=== PATIENT | female | born 1995 | race Caucasian/White ===

== ENCOUNTER 2017-02-22 16:33 | Emergency (ER) | payer OTHER ==
[~2017-02-22] VITALS: Ht 167.6 cm; Wt 65.0 kg
[2017-02-22 16:35] VITALS: BP 147/84; PULSE 78; RESP 16; TEMP 98.2; O2SAT 99
[2017-02-22 17:37] LABS: AUTOMATED NEUTROPHIL # 14.3 TH/MM3 (1.8-7.7); BASOPHIL # 0.1 TH/MM3 (0-0.2); BASOPHIL % 0.4 % (0.0-2.0); EOSINOPHIL # 0.1 TH/MM3 (0-0.4); EOSINOPHIL % 0.6 % (0.0-4.0); HEMATOCRIT 37.4 % (35.0-46.0); HEMO FLAGS DIFF FINAL; LYMPH % 17.4 % (9.0-44.0); LYMPHOCYTE # 3.3 TH/MM3 (1.0-4.8); MEAN CELL VOLUME 86.1 FL (80.0-100.0); MEAN CORPUSCULAR HEMOGLOBIN 29.1 PG (27.0-34.0); MEAN CORPUSCULAR HGB CONC 33.8 % (32.0-36.0); MONO % 6.4 % (0.0-8.0); NEUT % 75.2 % (16.0-70.0); PLATELET COUNT 257 TH/MM3 (150-450); RED BLOOD COUNT 4.34 MIL/MM3 (4.00-5.30); RED CELL DISTRIBUTION WIDTH 12.5 % (11.6-17.2)
--- NOTE | 2017-02-22 17:39 | PD ---
HPI Chief Complaint: Related Problem Time Seen by Provider: 17:39 Travel History International Travel<30 days: No Contact w/Intl Traveler<30days: No Traveled to known affect area: No History of Present Illness HPI 21 YO female presents the ED for evaluation of one day history of lower abdominal cramping and light vaginal spotting. She denies fevers, chills, nausea, vomiting, dysuria, vaginal discharge, back pain. Patient endorses a positive urine test at home. She is unsure of the date of her last menstrual period. She thinks it may have an early December. PFSH Past Medical History ?: LMP: mid-December Social History Tobacco Use: Yes (currently trying to quit) Allergies-Medications (Allergen,Severity, Reaction): Coded Allergies: No Known Allergies (Unverified , 02/22/17) Reported Meds & Prescriptions Reported Meds & Active Scripts Active No Active Prescriptions or Reported Medications Review of Systems Except as stated in HPI: all other systems reviewed are Neg Physical Exam Narrative GENERAL: Well-nourished, well-developed patient. SKIN: Focused skin assessment warm/dry. HEAD: Normocephalic. EYES: No scleral icterus. No injection or drainage. NECK: Supple, trachea midline. No JVD or lymphadenopathy. CARDIOVASCULAR: Regular rate and rhythm without murmurs, gallops, or rubs. RESPIRATORY: Breath sounds equal bilaterally. No accessory muscle use. GASTROINTESTINAL: Abdomen soft, non-tender, nondistended. Active bowel sounds. GENITOURINARY: Normal external genitalia without lesions or erythema. Vaginal vault without blood. Small amount of thick white drainage. Cervix thick, firm , closed. Cervical os was closed without drainage. No cervical motion tenderness. Uterus nontender and nonenlarged. Bilateral adnexa nontender without masses. MUSCULOSKELETAL: No cyanosis, or edema. BACK: Nontender without obvious deformity. No CVA tenderness. Data Data Last Documented VS Vital Signs Date Time Temp Pulse Resp B/P Pulse Ox O2 Delivery O2 Flow Rate FiO2 02/22/17 17:53 97 Room Air 02/22/17 16:35 98.2 78 16 147/84 Orders Complete Blood Count With Diff (02/22/17 17:01) Beta Hcg (Quant/Titer) (02/22/17 17:01) Iv Access Insert/Monitor (02/22/17 17:01) Oxygen Administration (6/6/17 17:01) Oximetry (02/22/17 17:01) Ed Urine Pregnancytest Poc (02/22/17 17:01) Gc And Chlamydia Pcr (02/22/17 17:50) Wet Prep Profile (02/22/17 17:50) Urinalysis - C+S If Indicated (02/22/17 17:50) Ed Poc Ultrasound (02/22/17 ) Us Pelvis (Ques Pr/Ect)W Trans (02/22/17 ) Labs Laboratory Tests Test 02/22/17 02/22/17 02/22/17 17:16 18:05 18:20 White Blood Count 19.0 TH/MM3 Red Blood Count 4.34 MIL/MM3 Hemoglobin 12.6 GM/DL Hematocrit 37.4 % Mean Corpuscular Volume 86.1 FL Mean Corpuscular Hemoglobin 29.1 PG Mean Corpuscular Hemoglobin 33.8 % Concent Red Cell Distribution Width 12.5 % Platelet Count 257 TH/MM3 Mean Platelet Volume 9.2 FL Neutrophils (%) (Auto) 75.2 % Lymphocytes (%) (Auto) 17.4 % Monocytes (%) (Auto) 6.4 % Eosinophils (%) (Auto) 0.6 % Basophils (%) (Auto) 0.4 % Neutrophils # (Auto) 14.3 TH/MM3 Lymphocytes # (Auto) 3.3 TH/MM3 Monocytes # (Auto) 1.2 TH/MM3 Eosinophils # (Auto) 0.1 TH/MM3 Basophils # (Auto) 0.1 TH/MM3 CBC Comment DIFF FINAL Differential Comment Human Chorionic Gonadotropin, 25072 MIU/ML Quant Urine Color YELLOW Urine Turbidity CLEAR Urine pH 5.5 Urine Specific [place] 1.021 Urine Protein TRACE mg/dL Urine Glucose (UA) NEG mg/dL Urine Ketones NEG mg/dL Urine Occult Blood NEG Urine Nitrite NEG Urine Bilirubin NEG Urine Urobilinogen LESS THAN 2.0 MG/DL Urine Leukocyte Esterase NEG Urine WBC 1 /hpf Urine Squamous Epithelial 1 /hpf Cells Urine Mucus FEW /lpf Microscopic Urinalysis Comment CULT NOT INDICATED Clue Cells (Wet Prep) NONE SEEN Vaginal Trichomonas (Wet Prep) NONE SEEN Vaginal Yeast (Wet Prep) NONE SEEN Chlamydia trachomatis DNA NOT DETECTED (PCR) Neisseria gonorrhoeae DNA NOT DETECTED (PCR) MDM Medical Decision Making Medical Screen Exam Complete: Yes Emergency Medical Condition: Yes Differential Diagnosis Intrauterine versus ectopic versus threatened miscarriage versus UTI versus STI versus other Narrative Course 21 YO female presents the ED for evaluation of one day history of lower abdominal cramping and light vaginal spotting. She denies fevers, chills, nausea, vomiting, dysuria, vaginal discharge, back pain. Patient endorses a positive urine test at home. She is unsure of the date of her last menstrual period. She thinks it may have an early December. Vitals reviewed. Physical exam reveals a thin white female in no acute distress. Abdomen soft, nontender. No CVA tenderness. Pelvic exam reveals a small amount of white discharge in the vaginal vault but is otherwise unremarkable. CBC shows a leukocytosis of 19.0. HCG 08172. No culture indicated of the UA. Wet prep negative. GC chlamydia and negative. Transvaginal ultrasound reveals intrauterine approximately 5 weeks, 2 days. 2 early for measuring crown-rump length or heart sounds. There is a possible subchorionic hemorrhage and probable right corpus luteal cyst noted. I discussed the results of the workup with the patient. Patient states that they recently moved to [place] and she is attempting to quit smoking, leukocytosis possibly stress related. Explained to the patient that she has a intrauterine that is too early to measure heart sounds and hCG is currently consistent with ultrasound dating. She understands that this is a threatened and she is to return to the ED in 48 hours for redraw of the hCG. Will follow the leukocytosis at that time as well. This patient is stable and discharged home. Diagnosis Primary Impression: Intrauterine Additional Impression: Threatened in early Referrals: Osteology Teacher Patient Instructions: First Trimester (ED), General Instructions, Threatened Miscarriage (ED) Additional Instructions: Rest, hydrate. Return to normal, gentle activity as tolerated. Return to the ED in 2-3 days for recheck of the hormone. Follow-up with the store hand as a land. Return to the ED for worsening of symptoms or any urgent or emergent medical condition. Scripts No Active Prescriptions or Reported Meds Disposition: 01 DISCHARGE HOME Condition: Stable Lisa Flower Feb 22, 2017 17:39
[2017-02-22 17:53] VITALS: O2SAT 97
[2017-02-22 18:12] LABS: BETA HCG QUANT 10860 MIU/ML (0-5)
[2017-02-22 18:34] LABS: BLOOD, URINE NEG (NEG); GLUCOSE,URINE NEG (NEG); KETONE, URINE NEG (NEG); MUCUS URINE FEW /lpf (OCC); NITRITE,URINE NEG (NEG); PH, URINE 5.5 (5.0-8.5); SQUAMOUS EPITHELIAL CELL URINE 1 /hpf (0-5); URINE COLOR YELLOW (YELLW/STRAW)
[2017-02-22 18:35] LABS: COMMENT (UR) CULT NOT INDICATED; CULTURE IF INDICATED CULT NOT INDICATED
--- NOTE | 2017-02-22 20:07 | RADRPT ---
EXAM DATE/TIME: 02/22/2017 19:20 [place] COMPARISON: No previous studies available for comparison. INDICATIONS : Pelvic cramping and spotting. LAB(S): Beta-hC,860 MEDICAL HISTORY : . Tobacco use. SURGICAL HISTORY : None. ENCOUNTER: Initial ACUITY: 1 day PAIN SCORE: 4/10 LOCATION: Bilateral pelvis MEASUREMENTS: UTERUS: 8.3 x 6.3 x 4.3 cm ENDOMETRIAL STRIPE: >20 mm RIGHT OVARY: 2.5 x 2.5 x 1.8 cm LEFT OVARY: Nonvisualized FREE FLUID: Yes posterior cul de sac CROWN RUMP LENGTH: 0.2 cm = OOR WKS DAYS FHR: Nonvisualized BPM FINDINGS: UTERUS: Single intrauterine estimated 5 weeks 2 days. Yolk sac present. pole too small to juanita sure. No heart tones. Small hypoechoic area adjacent to the endometrium measuring 13 x 5 x 7 mm . RIGHT OVARY: Mildly complex cystic lesion measures 15 x 13 x 15 mm. LEFT OVARY: Left ovary not visualized. MISCELLANEOUS: Trace free fluid. CONCLUSION: 1. Intrauterine estimated at 5 weeks and 2 days. [place]-rump length too small to measure and no heart tones at this time. Close interval followup. 2. Possible subchorionic hemorrhage measuring 13 x 5 x 7 mm. 3. Probable corpus luteal cyst on the right. Robson Marte MD on February 22, 2017 at 20:00 Board Certified Radiologist. This report was verified electronically.
[2017-02-22 22:28] LABS: CHLAMYDIA PCR NOT DETECTED (NOT DETECT); NEISSERIA PCR NOT DETECTED (NOT DETECT)
== END 2017-02-22 20:40 | disposition home or self-care (01) ==
LOC: NEPD 16:33
DX: O26.891 Other specified pregnancy related conditions, first trimester (principal); O20.0 Threatened abortion; R10.9 Unspecified abdominal pain; Z3A.01 Less than 8 weeks gestation of pregnancy
CPT/HCPCS: 76700; 76817; 81001; 84702; 84703; 85025; 87210; 87491; 87591; 99285

== ENCOUNTER 2017-04-21 17:33 | Emergency (ER) | payer MEDICAID, OTHER ==
[~2017-04-21] VITALS: Ht 167.6 cm; Wt 75.0 kg
[2017-04-21 17:36] VITALS: BP 140/72; PULSE 118; RESP 24; TEMP 98.2; O2SAT 99
[2017-04-21 20:57] VITALS: BP 146/81; PULSE 119; RESP 20; O2SAT 98
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
== END 2017-04-21 21:52 ==
LOC: NEPD 17:33
DX: F19.90 Other psychoactive substance use, unspecified, uncomplicated (principal); O99.321 Drug use complicating pregnancy, first trimester; F41.9 Anxiety disorder, unspecified; O99.341 Other mental disorders complicating pregnancy, first trimester; R00.0 Tachycardia, unspecified; R06.02 Shortness of breath; R11.0 Nausea; O99.331 Smoking (tobacco) complicating pregnancy, first trimester; Z3A.13 13 weeks gestation of pregnancy
CPT/HCPCS: 99281

== ENCOUNTER 2017-10-17 10:13 | Inpatient (IN) | payer MEDICAID ==
[2017-10-17] VITALS (11 sets, daily range): BP systolic 112–141; BP diastolic 81–92; PULSE 66–126; RESP 18–20; TEMP 98.1–98.8
[2017-10-17] MEDS ORDERED: LACTATED RINGER'S 1000 ML INJ 1,000 ML IV PRN (10:24)
[2017-10-17] MEDS ORDERED: LACTATED RINGER'S 1000 ML INJ 1,000 ML IV SCH (10:24)
--- NOTE | 2017-10-17 10:28 | HHI.HP ---
HPI Chief Complaint "The baby is coming" Date Seen: Oct 17, 2017 Time Seen: 10:00 Travel History International Travel<30 Days: No Contact w/Intl Traveler<30Days: No History of Present Illness HPI Ms. Vallecillo is a 21 yo white female with no significant PMH presenting to the OB floor in labor. She states that 2 days ago she started feeling uncomfortable and then proceeded to have contractions. Last night the contractions were every 7 minutes and then progressed to closer together this morning. She lost her mucous plug last night as well. No loss of fluids and no vaginal bleeding. Weeks Gestation: 39 Para: 0 : 1 Last Menstrual Period: Jan 16, 2017 Miscarriage: 0 : 0 History Past Medical History Medical History: Denies Significant Hx Past Surgical History Surgical History: No Previous Surgery Family History Family History: Negative Social History Alcohol Use: No Tobacco Use: Yes (a few cigarettes a day) Substance Abuse: Yes (hydrocodone (old rx) for back pain, a few times over the course of the , last dose was a week ago, denies IV drug use (chart review shows IV dilaudid use in April 2017)) Allergies-Medications (Allergen,Severity, Reaction): Coded Allergies: No Known Allergies (Unverified , 04/21/17) Home Meds No Active Prescriptions or Reported Meds Review of Systems General / Constitutional: No: Fever, Chills Physical Exam Narrative GENERAL: Well-nourished, well-developed patient. SKIN: Warm and dry. HEAD: Normocephalic and atraumatic. EYES: No scleral icterus. No injection or drainage. ENT: No nasal drainage noted. Mucous membranes pink. Airway patent. NECK: Supple, trachea midline. No JVD. CARDIOVASCULAR: Regular rate and rhythm without murmurs, gallops, or rubs. RESPIRATORY: Breath sounds equal bilaterally. No accessory muscle use. ABDOMEN/GI: Abdomen soft, non-tender, bowel sounds present, no rebound, no guarding Gravid to 39 weeks size GENITOURINARY: External Genitalia: intact and normal in appearance Dilatation: 10 Effacement: 100 Station: +1 Presentation: vertex Membranes: ruptured on exam Uterine Contractions: unable to assess due to precipitous delivery FHT's: not obtained prior to delivery EXTREMITIES: No cyanosis or edema. BACK: Nontender without obvious deformity. NEUROLOGICAL: Awake and alert. Motor and sensory grossly within normal limits. Five out of 5 muscle strength in all muscle groups. Normal speech. Caprini VTE Risk Assessment Caprini VTE Risk Assessment: No/Low Risk (score <= 1) Caprini Risk Assessment Model Point Value = 1 Point Value = 2 Point Value = 3 Point Value = 5 Age 41-60 Minor surgery BMI > 25 kg/m2 Swollen legs Varicose veins or History of unexplained or recurrent spontaneous Oral contraceptives or hormone replacement Sepsis (< 1 month) Serious lung disease, including pneumonia (< 1 month) Abnormal pulmonary function Acute myocardial infarction Congestive heart failure (< 1 month) History of inflammatory bowel disease Medical patient at bed rest Age 61-74 Arthroscopic surgery Major open surgery (> 45 min) Laparoscopic surgery (> 45 min) Malignancy Confined to bed (> 72 hours) Immobilizing plaster cast Central venous access Age >= 75 History of VTE Family history of VTE Factor V Leiden Prothrombin [id number] Lupus anticoagulant Anticardiolipin antibodies Elevated serum homocysteine Heparin-induced thrombocytopenia Other congenital or acquired thrombophilia Stroke (< 1 month) Elective arthroplasty Hip, pelvis, or leg fracture Acute spinal cord injury (< 1 month) Prophylaxis Regimen Total Risk Factor Score Risk Level Prophylaxis Regimen 0-1 Low Early ambulation 2 Moderate Order ONE of the following: *Sequential Compression Device (SCD) *Heparin 5000 units SQ BID 3-4 Higher Order ONE of the following medications: *Heparin 5000 units SQ TID *Enoxaparin/Lovenox 40 mg SQ daily (WT < 150 kg, CrCl > 30 mL/min) *Enoxaparin/Lovenox 30 mg SQ daily (WT < 150 kg, CrCl > 10-29 mL/min) *Enoxaparin/Lovenox 30 mg SQ BID (WT < 150 kg, CrCl > 30 mL/min) AND/OR *Sequential Compression Device (SCD) 5 or more Highest Order ONE of the following medications: *Heparin 5000 units SQ TID (Preferred with Epidurals) *Enoxaparin/Lovenox 40 mg SQ daily (WT < 150 kg, CrCl > 30 mL/min) *Enoxaparin/Lovenox 30 mg SQ daily (WT < 150 kg, CrCl > 10-29 mL/min) *Enoxaparin/Lovenox 30 mg SQ BID (WT < 150 kg, CrCl > 30 mL/min) AND *Sequential Compression Device (SCD) Data Data Vital Signs Reviewed: Yes Orders Orders Admit To Inpatient (10/17/17 ) Code Status (10/17/17 10:24) Vital Signs (Adult) .Per protocol (10/17/17 10:24) Heart (10/17/17 10:24) Amnioinfusion (10/17/17 10:24) Urinary Catheter Management .ONCE (10/17/17 10:24) Lactated Ringer's 1000 Ml Inj (Lr 1000 M (10/17/17 10:24) Lactated Ringer's 1000 Ml Inj (Lr 1000 M (10/17/17 10:24) Sodium Chlorid 0.9% 500 Ml Inj (Ns 500 M (10/17/17 10:30) Sodium Chlor 0.9% 1000 Ml Inj (Ns 1000 M (10/17/17 10:44) Lidocaine 1% Inj (50 Ml) (Xylocaine 1% I (10/17/17 10:30) Citric Acid-Sodium Citrate Liq (Bicitra (10/17/17 10:30) Ondansetron Inj (Zofran Inj) (10/17/17 10:30) Fentanyl Inj (Fentanyl Inj) (10/17/17 10:30) Fentanyl Inj (Fentanyl Inj) (10/17/17 10:30) Complete Blood Count With Diff (10/17/17 10:24) Hold Clot (10/17/17 10:24) Abo/Rh Blood Type (10/17/17 10:24) Urinalysis - C+S If Indicated (10/17/17 10:24) Drug Screen, Random Urine (10/17/17 10:24) Resp Oxygen Non Rebreathe Mask (10/17/17 ) ^ Epidural / Intrathecal Infus (10/17/17 10:24) Oxytocin 30 Units-500ml Premix (Pitocin (10/17/17 10:30) Lidocaine 1% Inj (50 Ml) (Xylocaine 1% I (10/17/17 10:30) Light Mineral Oil (Muri-Lube Oil) (10/17/17 10:30) Inpatient Certification (10/17/17 ) Specimen To Be Collected PRN (10/17/17 10:24) Specimen To Be Collected PRN (10/17/17 10:24) Group B Strep: Positive Assessment/Plan Problem List: (1) Intrauterine ICD Codes: Z33.1 - state, incidental Status: Acute Assessment and Plan 21yo at 39 weeks presenting to the ED in active labor. Patient was checked and found to be complete. Taken to the delivery room and delivered. Upon further chart further review pt found to be GBS positive. Was recently discharged from Dr. Olivares's practice. -Admitted to L&D * Successful delivery -Will continue to follow post- Mishel Whitlock MD R1 Oct 17, 2017 10:28
[2017-10-17] MEDS ORDERED: SODIUM CHLORID 0.9% 500 ML INJ 500 ML IV PRN (10:30)
[2017-10-17] MEDS ORDERED: LIDOCAINE HCL 1% 50 ML VIAL INFIL PRN (10:30)
[2017-10-17] MEDS ORDERED: MINERAL OIL 10 ML VIAL TOPICAL PRN (10:30)
[2017-10-17] MEDS ORDERED: CITRIC ACID-SODIUM CITRATE LIQ 30 ML UDC PO SCH (10:30)
[2017-10-17] MEDS ORDERED: ONDANSETRON HCL 4 MG/2 ML VIAL IV PUSH PRN (10:30)
[2017-10-17] MEDS ORDERED: OXYTOCIN 30 UNITS-500ML PREMIX 500 ML IV ONE (10:30)
[2017-10-17] MEDS ORDERED: LIDOCAINE HCL 1% 50 ML VIAL I-DERMAL PRN (10:30)
[2017-10-17] MEDS ORDERED: SODIUM CHLOR 0.9% 1000 ML INJ 1,000 ML IV PRN (10:44)
[2017-10-17] MEDS ORDERED: SODIUM CHLORIDE 0.9% FLUSH 10 ML FLUSH IV FLUSH PRN (10:45)
[2017-10-17] MEDS ORDERED: oxyCODONE/ACETAMINOPHEN 5 MG/325 MG TAB PO PRN (10:45)
[2017-10-17] MEDS ORDERED: WITCH HAZEL 50%/GLYCERIN 12.5% 40 PAD JAR TOPICAL PRN (10:45)
[2017-10-17] MEDS ORDERED: DOCUSATE SODIUM 50 MG/SENNA 8.6 MG TAB PO PRN (10:45)
[2017-10-17] MEDS ORDERED: ACETAMINOPHEN 325 MG TAB PO PRN (10:45)
[2017-10-17] MEDS ORDERED: BENZOCAINE 20% TOPICAL SPRAY 60 ML CAN TOPICAL PRN (10:45)
[2017-10-17] MEDS ORDERED: ONDANSETRON ODT 4 MG TAB PO PRN (10:45)
[2017-10-17] MEDS ORDERED: ALUMINUM/MAGNESIUM/SIMETH 30 ML CUP PO PRN (10:45)
[2017-10-17] MEDS ORDERED: OXYTOCIN 30 UNITS-500ML PREMIX 500 ML IV SCH (11:00)
--- NOTE | 2017-10-17 11:14 | PD.OB.DELI ---
Weeks gestation: 39 Gest age assessed date: Oct 17, 2017 Gest age assessed time: 10:03 Pt started active labor?: Yes Active labor start date: Oct 17, 2017 Active labor start time: 09:55 Medical induction of labor?: No Artificial rupture of membrane: No Anesthesia: None Episiotomy: None Vaginal Delivery: Normal Presentation: Occiput anterior Nuchal Cord: None Delayed cord clamping (45 sec): Yes : Female Delivery date: Oct 17, 2017 Delivery time: 10:03 One Minute : 9 Five Minute : 9 Weight: 2590 Placenta: Spontaneous delivery, Intact, 3 vessel cord Laceration: No lacerations Estimated blood loss: <250ml Mishel Whitlock MD R1 Oct 17, 2017 11:14
[2017-10-17] MEDS: IBUPROFEN 800 MG TAB PO PRN ×2 (11:19→21:32)
[2017-10-17 13:48] LABS: BACTERIA, URINE OCC /hpf; BILIRUBIN, URINE NEG (NEG); BLOOD, URINE MOD (NEG); GLUCOSE,URINE NEG (NEG); KETONE, URINE NEG (NEG); NITRITE,URINE NEG (NEG); PH, URINE 6.5 (5.0-8.5); URINE COLOR RED (YELLW/STRAW); URINE LEUKOCYTE ESTERASE NEG (NEG)
[2017-10-17] MEDS ORDERED: DIPHTH/TETANUS/ACEL PERTUSSIS (BOOSTER) 0.5 ML VIAL/PFS IM ONE (16:00)
[2017-10-17] MEDS ORDERED: MEASLES, MUMPS, RUBELLA VACCINE 0.5 ML VIAL SQ ONE (16:00)
[2017-10-17 16:49] LABS: AUTOMATED NEUTROPHIL # 9.6 TH/MM3 (1.8-7.7); BASOPHIL # 0.1 TH/MM3 (0-0.2); BASOPHIL % 0.4 % (0.0-2.0); EOSINOPHIL % 0.1 % (0.0-4.0); HEMATOCRIT 37.4 % (35.0-46.0); HEMOGLOBIN 12.5 GM/DL (11.6-15.3); LYMPH % 14.7 % (9.0-44.0); LYMPHOCYTE # 1.8 TH/MM3 (1.0-4.8); MEAN CELL VOLUME 83.6 FL (80.0-100.0); MEAN CORPUSCULAR HGB CONC 33.5 % (32.0-36.0); MEAN PLATELET VOLUME 10.8 FL (7.0-11.0); MONO % 6.1 % (0.0-8.0); MONOCYTE # 0.7 TH/MM3 (0-0.9); NEUT % 78.7 % (16.0-70.0); PLATELET COUNT 187 TH/MM3 (150-450); RED BLOOD COUNT 4.48 MIL/MM3 (4.00-5.30); RED CELL DISTRIBUTION WIDTH 13.8 % (11.6-17.2); WHITE BLOOD COUNT 12.2 TH/MM3 (4.0-11.0)
[2017-10-17] MEDS ORDERED: NICOTINE 14 MG/24 HR PATCH TOPICAL SCH (21:00)
[2017-10-17] MEDS ORDERED: REMOVE OLD PATCH T-DERMAL SCH (21:00)
[2017-10-17] MEDS ORDERED: SODIUM CHLORIDE 0.9% FLUSH 10 ML FLUSH IV FLUSH SCH (21:00)
[2017-10-17] MEDS: ZOLPIDEM TARTRATE 5 MG TAB PO PRN (21:33)
[2017-10-18 08:00] VITALS: BP 115/76; PULSE 70; RESP 16; TEMP 98
--- NOTE | 2017-10-18 08:57 | HHI.OB ---
Subjective Post Day: 1 Remarks day # 1. AFVSS overnight. Pain well-controlled. Decreased lochia. Denies dysuria. No breast tenderness. She is feeding the baby via bottle. Appetite good. No nausea or vomiting. has flatus. no bowel movement yet. Ambulating well. Denies calf pain, shortness of breath, or cough. Otherwise, she is doing well this morning and has no other complaints. Objective Vitals/I&O Vital Signs Date Time Temp Pulse Resp B/P (MAP) Pulse Ox O2 Delivery O2 Flow Rate FiO2 10/18/17 08:00 98.0 70 16 115/76 (89) 10/17/17 20:00 98.1 66 18 127/86 (100) 10/17/17 11:25 20 10/17/17 11:15 72 130/92 (105) 10/17/17 11:08 20 10/17/17 11:07 74 141/89 (106) 10/17/17 11:05 20 10/17/17 10:50 79 18 122/85 (97) 10/17/17 10:35 98.8 10/17/17 10:33 18 10/17/17 10:29 79 127/85 (99) 10/17/17 10:20 126 112/81 (91) Objective Remarks GENERAL: Well-nourished, well-developed patient. CARDIOVASCULAR: Regular rate and rhythm without murmurs, gallops, or rubs. RESPIRATORY: Breath sounds equal bilaterally. No accessory muscle use. ABDOMEN/GI: Abdomen soft, non-tender. Fundus: Firm, non-tender at umbilicus. GENITOURINARY: Light to moderate bleeding. EXTREMITIES: No cyanosis or edema, non-tender, without signs of DVT. Medications and IVs Current Medications Medications (Trade) Dose Ordered Sig/Jahaira Route Start Time Stop Time Status Last Admin Lactated Ringer's 1,000 ml @ 125 mls/hr Q8H IV 10/17/17 10:24 Lactated Ringer's 1,000 ml @ 3,000 mls/hr Q20M PRN IV 10/17/17 10:24 Sodium Chloride 500 ml @ 1,000 mls/hr ONCE PRN IV 10/17/17 10:30 10/18/17 10:29 Sodium Chloride 1,000 ml @ 100 mls/hr Q10H PRN IV 10/17/17 10:44 (Bicitra Liq) 30 ml [place] PO 10/17/17 10:30 10/21/17 10:29 (Zofran Inj) 4 mg Q6H PRN IV PUSH 10/17/17 10:30 (Muri-Lube Oil) 10 ml UNSCH PRN TOPICAL 10/17/17 10:30 (NS Flush) 2 ml BID IV FLUSH 10/17/17 21:00 (NS Flush) 2 ml UNSCH PRN IV FLUSH 10/17/17 10:45 (Tylenol) 650 mg Q4H PRN PO 10/17/17 10:45 (Motrin) 800 mg Q8H PRN PO 10/17/17 10:45 10/17/17 21:32 (Percocet 5-325 Mg) 1 tab Q4H PRN PO 10/17/17 10:45 10/17/17 21:33 (Percocet 5-325 Mg) 2 tab Q4H PRN PO 10/17/17 10:45 (Americaine 20% Top Spr) 1 spray Q4H PRN TOPICAL 10/17/17 10:45 10/17/17 21:32 (Tucks Pads) 1 applic QID PRN TOPICAL 10/17/17 10:45 10/17/17 21:29 (Smita-Colace) 2 tab Q12H PRN PO 10/17/17 10:45 (Ambien) 5 mg HS PRN PO 10/17/17 10:45 10/17/17 21:33 (Mag-Al Plus Susp Liq) 15 ml Q8H PRN PO 10/17/17 10:45 (Zofran Odt) 4 mg Q6H PRN PO 10/17/17 10:45 (Flu (Quadrivalent) Vaccine Inj) 0.5 ml ONCE ONCE IM 10/18/17 09:00 10/18/17 09:01 (Habitrol 14 Mg Patch.24 Hr) 1 patch DAILY@2100 TOPICAL 10/17/17 21:00 Miscellaneous Information 1 DAILY@2100 T-DERMAL 10/17/17 21:00 Assessment/Plan Problem List: (1) Intrauterine ICD Codes: Z33.1 - state, incidental Status: Acute Assessment and Plan 21 y/o who is PPD# 1 s/p . -Continue routine care. -Percocet and Motrin PRN pain. -Encouraged OOB. Advised pelvic rest for 6 wks. -Will need a f/u appt. within 6 wks. -Re: ctrl, she would like to research first. We discussed depo and long acting BC like IUD or Nexplanon. -D/c in 1-2 more days. wdw OB attending Mishel Whitlock MD R1 Oct 18, 2017 08:57
[2017-10-18] MEDS ORDERED: INFLUENZA VIRUS VACCINE (QUADRIVALENT) 0.5 ML SYR IM ONE (09:00)
[2017-10-18] MEDS: IBUPROFEN 800 MG TAB PO PRN (13:47)
[2017-10-18] MEDS: oxyCODONE/ACETAMINOPHEN 5 MG/325 MG TAB PO PRN (13:54)
[2017-10-18 20:00] VITALS: BP 128/80; PULSE 66; RESP 18; TEMP 98.4; O2SAT 99
[2017-10-18] MEDS: ZOLPIDEM TARTRATE 5 MG TAB PO PRN (21:14)
[2017-10-19] MEDS: IBUPROFEN 800 MG TAB PO PRN (01:38)
[2017-10-19] MEDS: oxyCODONE/ACETAMINOPHEN 5 MG/325 MG TAB PO PRN (01:39)
[2017-10-19 08:00] VITALS: BP 111/67; PULSE 60; RESP 14; TEMP 98.4
[2017-10-19] MEDS ORDERED: IBUP1TAB7 PO (08:15)
[2017-10-19] MEDS ORDERED: PERI PO (08:15)
--- NOTE | 2017-10-19 08:33 | HHI.OB ---
Subjective Post Day: 2 Remarks day # 2. AFVSS overnight. Pain minimal and well controlled. Decreased lochia. Denies dysuria. No breast tenderness. She is feeding the baby via bottle. Appetite good. No nausea or vomiting. + flatus. + bowel movement. Ambulating well. Denies calf pain, shortness of breath, or cough. Otherwise, she is doing well this morning and has no other complaints. Objective Vitals/I&O Vital Signs Date Time Temp Pulse Resp B/P (MAP) Pulse Ox O2 Delivery O2 Flow Rate FiO2 10/19/17 08:00 98.4 60 14 111/67 (82) 10/18/17 20:00 66 128/80 (96) 10/18/17 20:00 98.4 18 99 Objective Remarks GENERAL: Well-nourished, well-developed patient. CARDIOVASCULAR: Regular rate and rhythm without murmurs, gallops, or rubs. RESPIRATORY: Breath sounds equal bilaterally. No accessory muscle use. ABDOMEN/GI: Abdomen soft, non-tender. Fundus: Firm, non-tender at umbilicus. GENITOURINARY: Light to moderate bleeding. EXTREMITIES: No cyanosis or edema, non-tender, without signs of DVT. Medications and IVs Current Medications Medications (Trade) Dose Ordered Sig/Jahaira Route Start Time Stop Time Status Last Admin Lactated Ringer's 1,000 ml @ 125 mls/hr Q8H IV 10/17/17 10:24 Lactated Ringer's 1,000 ml @ 3,000 mls/hr Q20M PRN IV 10/17/17 10:24 Sodium Chloride 1,000 ml @ 100 mls/hr Q10H PRN IV 10/17/17 10:44 (Bicitra Liq) 30 ml [employer] PO 10/17/17 10:30 10/21/17 10:29 (Zofran Inj) 4 mg Q6H PRN IV PUSH 10/17/17 10:30 (Muri-Lube Oil) 10 ml UNSCH PRN TOPICAL 10/17/17 10:30 (NS Flush) 2 ml BID IV FLUSH 10/17/17 21:00 (NS Flush) 2 ml UNSCH PRN IV FLUSH 10/17/17 10:45 (Tylenol) 650 mg Q4H PRN PO 10/17/17 10:45 (Motrin) 800 mg Q8H PRN PO 10/17/17 10:45 10/19/17 01:38 (Percocet 5-325 Mg) 1 tab Q4H PRN PO 10/17/17 10:45 10/17/17 21:33 (Percocet 5-325 Mg) 2 tab Q4H PRN PO 10/17/17 10:45 10/19/17 01:39 (Americaine 20% Top Spr) 1 spray Q4H PRN TOPICAL 10/17/17 10:45 10/17/17 21:32 (Tucks Pads) 1 applic QID PRN TOPICAL 10/17/17 10:45 10/17/17 21:29 (Smita-Colace) 2 tab Q12H PRN PO 10/17/17 10:45 10/18/17 13:54 (Ambien) 5 mg HS PRN PO 10/17/17 10:45 10/18/17 21:14 (Mag-Al Plus Susp Liq) 15 ml Q8H PRN PO 10/17/17 10:45 (Zofran Odt) 4 mg Q6H PRN PO 10/17/17 10:45 (Habitrol 14 Mg Patch.24 Hr) 1 patch DAILY@2099 TOPICAL 10/17/17 21:00 10/18/17 13:53 Miscellaneous Information 1 DAILY@2099 T-DERMAL 10/17/17 21:00 Assessment/Plan Problem List: (1) Intrauterine ICD Codes: Z33.1 - state, incidental Status: Acute Assessment and Plan 21 y/o who is PPD# 2 s/p . -Continue routine care, to be discharged today -Percocet and Motrin PRN pain. -Encouraged OOB. Advised pelvic rest for 6 wks. -Will need a f/u appt. within 6 wks. -Re: ctrl, would like depo shot before discharge. -D/c in 1-2 more days. [facility] attending Mishel Whitlock MD R1 Oct 19, 2017 08:33
[2017-10-19] MEDS ORDERED: medroxyPROGESTERone ACETATE SUSP 150 MG/ML SYRINGE IM ONE (08:45)
--- NOTE | 2017-10-19 09:25 | HHI.DCPOC ---
Discharge Care Plan Diagnosis: (1) care following vaginal delivery Report Symptoms to Your Doctor -Temperature above 100.5 degrees -Redness, of incision or excessive or foul smelling drainage -Unusual pain or calf pain -Increased vaginal bleeding -Painful or difficulty urinating -Feelings of extreme sadness or anxiety after 2 weeks Goals to Promote Your Health * To prevent worsening of your condition and complications * To maintain your health at the optimal level Directions to Meet Your Goals Take your medications as prescribed Follow your dietary instruction Follow activity as directed Ensure plenty of rest for recovery Drink fluids for hydration Keep your appointments as scheduled Take your immunizations and boosters as scheduled If your symptoms worsen call your PCP, if no PCP go to Urgent Care Center or Emergency Room Smoking is Dangerous to Your Health. Avoid second hand smoke Call the 24-hour crisis hotline for domestic abuse at Chino Erickson MD Oct 19, 2017 09:25
== END 2017-10-19 11:15 | disposition home or self-care (01) | DRG 775 ==
LOC: H2EA 10:13 → H1EA 11:43
PROVIDERS: ADMIT Obstetrics & Gynecology Maternal & Fetal Medicine; ATTEND Obstetrics & Gynecology Maternal & Fetal Medicine
PROC: 10E0XZZ Delivery of Products of Conception, External Approach (ICD-10-PCS; principal; 2017-10-17)
DX: O99.824 Streptococcus B carrier state complicating childbirth (principal); F17.210 Nicotine dependence, cigarettes, uncomplicated; Z37.0 Single live birth; O99.334 Smoking (tobacco) complicating childbirth; Z23 Encounter for immunization; Z3A.39 39 weeks gestation of pregnancy
CPT/HCPCS: 80307; 81001; 85025; 86803; 86900; 86901; 87086; 90686; 90715; G0481; J1050; Q2038